=== PATIENT | male | born 1995 | race Caucasian/White ===

== ENCOUNTER 2018-09-30 07:40 | Emergency (ER) | payer MEDICAID, OTHER ==
[~2018-09-30] VITALS: Ht 180.3 cm; Wt 111.4 kg
[2018-09-30] MEDS ORDERED: SULFAMETHOX/TRIMETH DS 800-160 MG/TABLET PO ONE (09:15)
[2018-09-30] MEDS: MUPIROCIN CALCIUM 2% 22 GM OINTMENT TP ONE ×2 (09:21→09:45)
[2018-09-30 09:56] VITALS: BP 114/68
== END 2018-09-30 09:58 | disposition home or self-care (01) ==
LOC: EMS 07:41
DX: S00.01XA Abrasion of scalp, initial encounter (principal); L08.9 Local infection of the skin and subcutaneous tissue, unspecified; F17.210 Nicotine dependence, cigarettes, uncomplicated; F41.9 Anxiety disorder, unspecified; F12.90 Cannabis use, unspecified, uncomplicated; Z98.890 Other specified postprocedural states; X58.XXXA Exposure to other specified factors, initial encounter; Y93.89 Activity, other specified; Y92.89 Other specified places as the place of occurrence of the external cause; Y99.8 Other external cause status
CPT/HCPCS: 99406